=== PATIENT | female | born 1990 | race Caucasian/White ===

== ENCOUNTER 2020-08-09 20:36 | Emergency (ER) | payer MEDICAID ==
[~2020-08-09] VITALS: Ht 152.4 cm; Wt 87.1 kg
[2020-08-09 20:53] VITALS: BP 118/52
--- NOTE | 2020-08-09 20:57 | NUR ---
To ED bed 05
--- NOTE | 2020-08-09 21:08 | NUR ---
ERMD AT BEDSIDE EVALUATING PT
--- NOTE | 2020-08-09 21:40 | NUR ---
LAB AT BEDSIDE
--- NOTE | 2020-08-09 21:40 | NUR ---
ULTRASOUND AT BEDSIDE
[2020-08-09 21:51] LABS: BASOPHILS # (AUTO) 0.1 K/uL (0.00-0.22); BASOPHILS % (AUTO) 0.5 % (0.0-2.0); EOSINOPHILS # (AUTO) 0.1 K/uL (0-0.4); EOSINOPHILS % (AUTO) 0.8 % (0.0-4.0); HEMATOCRIT 36.5 % (36-48); HEMOGLOBIN 12.7 g/dL (12.0-16.0); LYMPHOCYTES # (AUTO) 3.5 K/uL (2.5-16.5); LYMPHOCYTES % (AUTO) 33.1 % (20.5-51.1); MEAN CORPUSCULAR HEMOGLOBIN 28 pg (27-31); MEAN CORPUSCULAR HGB CONC 35 g/dL (33-37); MEAN CORPUSCULAR VOLUME 81.6 fL (80-94); MONOCYTES # (AUTO) 0.7 K/uL (0.8-1.0); MONOCYTES % (AUTO) 6.6 % (1.7-9.3); NEUTROPHILS # (AUTO) 6.2 K/uL (1.8-7.7); PLATELET COUNT (AUTO) 243 K/uL (140-450); RED BLOOD CELL COUNT(AUTO) 4.48 MIL/uL (4.20-5.40); RED CELL DISTRIBUTION WIDTH 13.4 % (11.6-13.7); WHITE BLOOD COUNT (AUTO) 10.6 K/uL (4.8-10.8)
--- NOTE | 2020-08-09 21:59 | NUR ---
30 y/o female c/o intermittent vaginal bleeding x 2 days accompanied with pelvic pain. pt is 8-9 weeks . pt denies pain at this time. describes blood color as " bright red" denies burning/pain upon urination. denies fever, cough, sob. lung sounds clear. vss. G3 T2 L 2 pmhx: denies nka
[2020-08-09 22:12] LABS: ALBUMIN 3.4 g/dL (3.4-5.0); ANION GAP 14.2 (8-16); CARBON DIOXIDE 26.3 mmol/L (21-32); CREATININE 0.6 mg/dL (0.6-1.3); POTASSIUM 3.5 mmol/L (3.5-5.1); TOTAL BILIRUBIN 0.3 mg/dL (0.0-1.0)
[2020-08-09 22:23] LABS: PROTHROMBIN TIME 9.9 secs (10.8-13.4)
--- NOTE | 2020-08-09 22:49 | NUR ---
DR WILSON AT BEDSIDE SPEAKING WITH PT
[2020-08-09 22:53] VITALS: BP 118/52
--- NOTE | 2020-08-09 22:53 | NUR ---
Patient discharged with v/s stable. Written and verbal after care instructions given and explained. Patient verbalized understanding. Ambulatory with steady gait. ID Band Removed. All questions addressed prior to discharge. Advised to follow up with PMD.
== END 2020-08-09 22:53 | disposition home or self-care (01) ==
LOC: MED 20:36
DX: O26.851 Spotting complicating pregnancy, first trimester (principal); O26.891 Other specified pregnancy related conditions, first trimester; Z3A.08 8 weeks gestation of pregnancy
CPT/HCPCS: 36415; 76801; 80053; 81002; 81025; 84702; 85025; 85610; 86900; 86901; 99284; Q0092

== ENCOUNTER 2020-08-14 12:19 | Emergency (ER) | payer MEDICAID ==
[~2020-08-14] VITALS: Ht 152.4 cm; Wt 86.2 kg
[2020-08-14 12:27] VITALS: BP 114/104
--- NOTE | 2020-08-14 12:27 | NUR ---
PT AMB TO BED 12
[2020-08-14] MEDS ORDERED: ONDANSETRON 4 MG/2 ML VIAL IVP ONE (12:35)
[2020-08-14] MEDS ORDERED: NACL 0.9% 1,000 ML IV ONE (12:35)
[2020-08-14] MEDS ORDERED: MORPHINE SULFATE 4 MG/ML SYR IVP ONE (12:35)
--- NOTE | 2020-08-14 12:35 | NUR ---
PT C/O LOWER ABDOMINAL PAIN WITH CRAMPING SENSATION SINCE 08/09/2020 AND HEAVY VAGINAL BLEEDING WITH CLOTS X TODAY. PT WAS SEEN HERE ON 08/09/2020 AND DX WITH ABDOMINAL PAIN & VAGINAL BLEEDING DURING . PT FOLLOWED UP WITH HER OB DR ON Wednesday08/12/2020 AND WAS TOLD EVERYTHING WAS NORMAL PER PT. LMP: 06/06/2020, A0, APPROX 9 WKS OF
[2020-08-14 12:52] LABS: BASOPHILS # (AUTO) 0.1 K/uL (0.00-0.22); BASOPHILS % (AUTO) 0.5 % (0.0-2.0); EOSINOPHILS # (AUTO) 0.1 K/uL (0-0.4); EOSINOPHILS % (AUTO) 1.1 % (0.0-4.0); HEMATOCRIT 36.9 % (36-48); HEMOGLOBIN 12.8 g/dL (12.0-16.0); LYMPHOCYTES # (AUTO) 2.3 K/uL (2.5-16.5); LYMPHOCYTES % (AUTO) 21.7 % (20.5-51.1); MEAN CORPUSCULAR HEMOGLOBIN 28 pg (27-31); MEAN CORPUSCULAR HGB CONC 35 g/dL (33-37); MEAN CORPUSCULAR VOLUME 81.2 fL (80-94); MONOCYTES # (AUTO) 0.5 K/uL (0.8-1.0); MONOCYTES % (AUTO) 4.8 % (1.7-9.3); NEUTROPHILS # (AUTO) 7.6 K/uL (1.8-7.7); NEUTROPHILS % (AUTO) 71.9 % (42.2-75.2); PLATELET COUNT (AUTO) 252 K/uL (140-450); RED BLOOD CELL COUNT(AUTO) 4.54 MIL/uL (4.20-5.40); RED CELL DISTRIBUTION WIDTH 13.5 % (11.6-13.7); WHITE BLOOD COUNT (AUTO) 10.5 K/uL (4.8-10.8)
--- NOTE | 2020-08-14 13:36 | NUR ---
Ultrasound at bedside.
[2020-08-14 15:15] VITALS: BP 114/104
--- NOTE | 2020-08-14 15:16 | NUR ---
Patient discharged with v/s stable. Written and verbal after care instructions given and explained. Patient verbalized understanding. Ambulatory with steady gait. All questions addressed prior to discharge. Advised to follow up with PMD.
--- NOTE | 2020-08-17 04:32 | NUR ---
late entry---- s/w primary Nurse Jaime, as follows; end time NS [id number]
== END 2020-08-14 15:16 | disposition home or self-care (01) ==
LOC: MED 12:19
DX: O20.0 Threatened abortion (principal); R10.2 Pelvic and perineal pain; Z3A.08 8 weeks gestation of pregnancy
CPT/HCPCS: 36415; 76801; 84702; 85025; 96361; 96374; 96375; 99284; J2270; J2405; J7030

== ENCOUNTER 2020-08-17 02:40 | Emergency (ER) | payer MEDICAID ==
[~2020-08-17] VITALS: Ht 152.4 cm; Wt 87.1 kg
[2020-08-17 02:46] VITALS: BP 107/70
[2020-08-17] MEDS ORDERED: DOCUSATE SODIUM 100 MG GELCAP PO SCH (03:05)
[2020-08-17 03:25] VITALS: BP 107/70
== END 2020-08-17 03:25 | disposition home or self-care (01) ==
LOC: MED 02:40
DX: K59.00 Constipation, unspecified (principal)
CPT/HCPCS: 99282

== ENCOUNTER 2021-09-17 19:14 | Emergency (ER) | payer MEDICAID ==
[~2021-09-17] VITALS: Ht 152.4 cm; Wt 94.3 kg
[2021-09-17 19:20] VITALS: BP 144/86
--- NOTE | 2021-09-17 19:20 | NUR ---
TO BED AMBULATORY
--- NOTE | 2021-09-17 19:30 | NUR ---
31 Y/O F BIB SELF FOR VAGINAL SPOTTING X1WK. PATIENT PRESENTS TO ED WITH BILATERAL, (FRONT AND BACK) HIP PAIN, "MOSTLY IN HER LEFT SIDE." SHE STATES EARLIER TODAY SHE DISCHARGED A BLOOD CLOT WHICH SCARED HER TO GOING INTO THE ER. PT STATES SHE IS 5.5 WKS , IS SEEING AN OBGYN AND RECIEVING CARE. DENIES N/V/D; SKIN IS PINK/WARM/DRY; AAOX4 WITH EVEN AND STEADY GAIT; LUNGS CLEAR BL; HR EVEN AND REGULAR; PT DENIES ANY FEVER, CP, SOB, OR COUGH AT THIS TIME; PATIENT STATES PAIN OF 5/10 AT THIS TIME; VSS; PATIENT POSITIONED FOR COMFORT; HOB ELEVATED; BEDRAILS UP X2; BED DOWN. ER MD MADE AWARE OF PT STATUS. HX: MISCARRIAGE NKDA VITAMINS
[2021-09-17 21:03] LABS: BASOPHILS % (AUTO) 0.4 % (0.0-2.0); EOSINOPHILS # (AUTO) 0.1 K/uL (0-0.4); EOSINOPHILS % (AUTO) 0.5 % (0.0-4.0); HEMATOCRIT 34.7 % (36-48); HEMOGLOBIN 11.8 g/dL (12.0-16.0); LYMPHOCYTES % (AUTO) 25.5 % (20.5-51.1); MEAN CORPUSCULAR HEMOGLOBIN 26 pg (27-31); MEAN CORPUSCULAR HGB CONC 34 g/dL (33-37); MEAN CORPUSCULAR VOLUME 76.5 fL (80-94); MONOCYTES # (AUTO) 0.6 K/uL (0.8-1.0); NEUTROPHILS % (AUTO) 68.6 % (42.2-75.2); PLATELET COUNT (AUTO) 292 K/uL (140-450); RED BLOOD CELL COUNT(AUTO) 4.54 MIL/uL (4.20-5.40); RED CELL DISTRIBUTION WIDTH 14.6 % (11.6-13.7); WHITE BLOOD COUNT (AUTO) 11.6 K/uL (4.8-10.8)
--- NOTE | 2021-09-17 21:39 | NUR ---
Dr. Rizo examining patient.
[2021-09-17] MEDS ORDERED: ACETAMINOPHEN 325 MG TAB PO ONE (21:55)
[2021-09-17 22:09] LABS: ALBUMIN 3.5 g/dL (3.4-5.0); ANION GAP 10.8 (8-16); CARBON DIOXIDE 25.5 mmol/L (21-32); CREATININE 0.5 mg/dL (0.6-1.3); POTASSIUM 3.3 mmol/L (3.5-5.1); TOTAL BILIRUBIN 0.3 mg/dL (0.0-1.0)
--- NOTE | 2021-09-17 22:10 | NUR ---
ER AT BEDSIDE
--- NOTE | 2021-09-17 22:17 | NUR ---
URINE SPECIMEN WALKED TO LAB
--- NOTE | 2021-09-17 22:18 | NUR ---
ER AT BEDSIDE
[2021-09-17] MEDS ORDERED: POTASSIUM CHLORIDE 10 MEQ TABER PO ONE (22:25)
[2021-09-17 22:32] LABS: APPEARANCE,URINE CLEAR (CLEAR); BILIRUBIN,URINE NEGATIVE (NEGATIVE); BLOOD, URINE 3+ (NEGATIVE); COLOR,URINE YELLOW (YELLOW); LEUKOCYTE ESTERASE ,URINE NEGATIVE (NEGATIVE); NITRITE, URINE NEGATIVE (NEGATIVE); UGLUCOSE NEGATIVE (NEGATIVE)
--- NOTE | 2021-09-17 22:45 | NUR ---
LABS AT BEDSIDE
[2021-09-17 22:46] LABS: RBC,URINE 0-5 /HPF (0-5); WBC,URINE 0-5 /HPF (0-5)
--- NOTE | 2021-09-17 23:31 | NUR ---
ER MD AT BEDSIDE PERFORMING EXAMINATION
[2021-09-18 00:12] VITALS: BP 123/75
--- NOTE | 2021-09-18 00:12 | NUR ---
Patient discharged with v/s stable. Written and verbal after care instructions given and explained. Patient verbalized understanding. Ambulatory with steady gait. All questions addressed prior to discharge. Advised to follow up with PMD. A/OX4, GCS:15, VSS, UNLABORED BREATHING, STEADY GAIT, AND CALM DEMEANOR.
== END 2021-09-18 00:12 | disposition home or self-care (01) ==
LOC: MED 19:14
DX: O46.91 Antepartum hemorrhage, unspecified, first trimester (principal); O20.0 Threatened abortion; Z3A.01 Less than 8 weeks gestation of pregnancy
CPT/HCPCS: 36415; 76817; 80053; 81001; 83605; 84702; 85025; 86886; 86900; 86901; 87086; 99284; Q0092

== ENCOUNTER 2021-09-22 10:40 | Emergency (ER) | payer MEDICAID ==
[~2021-09-22] VITALS: Ht 152.4 cm; Wt 93.4 kg
[2021-09-22 11:32] VITALS: BP 120/49
[2021-09-22 12:24] LABS: BASOPHILS % (AUTO) 0.4 % (0.0-2.0); EOSINOPHILS # (AUTO) 0.1 K/uL (0-0.4); EOSINOPHILS % (AUTO) 0.8 % (0.0-4.0); HEMATOCRIT 36.5 % (36-48); HEMOGLOBIN 12.5 g/dL (12.0-16.0); LYMPHOCYTES % (AUTO) 18.3 % (20.5-51.1); MEAN CORPUSCULAR HEMOGLOBIN 26 pg (27-31); MEAN CORPUSCULAR HGB CONC 34 g/dL (33-37); MEAN CORPUSCULAR VOLUME 77.2 fL (80-94); MONOCYTES # (AUTO) 0.5 K/uL (0.8-1.0); MONOCYTES % (AUTO) 4.9 % (1.7-9.3); NEUTROPHILS # (AUTO) 8.1 K/uL (1.8-7.7); NEUTROPHILS % (AUTO) 75.6 % (42.2-75.2); PLATELET COUNT (AUTO) 298 K/uL (140-450); RED BLOOD CELL COUNT(AUTO) 4.73 MIL/uL (4.20-5.40); RED CELL DISTRIBUTION WIDTH 14.5 % (11.6-13.7); WHITE BLOOD COUNT (AUTO) 10.7 K/uL (4.8-10.8)
[2021-09-22 12:37] LABS: ANION GAP 15.2 (8-16); CARBON DIOXIDE 23.8 mmol/L (21-32); CREATININE 0.5 mg/dL (0.6-1.3)
[2021-09-22] MEDS: MORPHINE SULFATE 4 MG/ML SYR IVP ONE (13:33)
[2021-09-22] MEDS: METOCLOPRAMIDE 10 MG/2 ML INJ VIAL IVP ONE (13:33)
[2021-09-22 15:16] VITALS: BP 120/49
== END 2021-09-22 15:16 | disposition home or self-care (01) ==
LOC: MED 10:40
DX: O20.0 Threatened abortion (principal)
CPT/HCPCS: 36415; 76801; 80048; 81002; 81025; 84702; 85025; 86886; 86900; 86901; 96374; 96375; 99284; J2270; J2765; Q0092

== ENCOUNTER 2022-12-07 12:26 | Emergency (ER) | payer MEDICAID ==
[~2022-12-07] VITALS: Ht 152.4 cm; Wt 97.5 kg
[2022-12-07 13:05] VITALS: BP 119/75
[2022-12-07] MEDS ORDERED: KETOROLAC 30 MG/ML VIAL IM ONE (13:50)
[2022-12-07] MEDS ORDERED: CAPS1ADH5 TP (13:53)
[2022-12-07] MEDS ORDERED: NAPR-1704 PO (13:53)
--- NOTE | 2022-12-07 14:16 | NUR ---
Patient discharged with v/s stable. Written and verbal after care instructions ABOUT MUSCLE STRAIN AND SCIATICA REHAB given and explained. Patient alert, oriented and verbalized understanding of instructions. Ambulatory with steady gait. All questions addressed prior to discharge. ID band removed. Patient advised to follow up with PMD. Rx of SALONPAS GEL-PATCH HOT AND NAPROXEN given. Patient educated on indication of medication including possible reaction and side effects. Opportunity to ask questions provided and answered.
== END 2022-12-07 14:16 | disposition home or self-care (01) ==
LOC: MED 12:26
DX: S76.812A Strain of other specified muscles, fascia and tendons at thigh level, left thigh, initial encounter (principal); X58.XXXA Exposure to other specified factors, initial encounter; Y93.89 Activity, other specified; Y92.89 Other specified places as the place of occurrence of the external cause; Y99.8 Other external cause status
CPT/HCPCS: 81025; 96372; 99283; J1885

== ENCOUNTER 2024-06-05 17:56 | Emergency (ER) | payer MEDICAID, OTHER ==
[~2024-06-05] VITALS: Ht 152.4 cm; Wt 88.5 kg
[~2024-06-05 17:56] MED LIST: CAPS1ADH5 TP; NAPR-1704 PO
[2024-06-05 18:17] VITALS: BP 148/95; PULSE 79; RESP 20; TEMP 97.5; O2SAT 100
--- NOTE | 2024-06-05 18:41 | NUR ---
34 Y/O F WITH NO PMH PT STATED SHE FELT A SHARP PAIN IN BACK TODAY AND HAS WORSENED TO SEVERE LOW BACK PAIN RADIATING TO LEGS 07/13 PMH: DENIES ALLERGIES NKA
[2024-06-05] MEDS: HYDROcodone/APAP 5/325 MG 1 TAB TAB PO ONE (18:56)
[2024-06-05] MEDS: KETOROLAC 30 MG/ML VIAL IM ONE (18:56)
--- NOTE | 2024-06-05 19:14 | NUR ---
REPORT GIVEN TO MELVIN BROOKE; MELVIN HAS CLEAR UNDERSTANDING OF CARE.
[2024-06-05 19:33] VITALS: O2SAT 100
--- NOTE | 2024-06-05 19:40 | NUR ---
PT C/O R FLANK PAIN /. STATES SHE WAS GETTING OUT OF BED AND FELT A SHARP PAIN IN HER BACK. STATES WHEN SHE TRYS TO GET UP OR MOVE THE PAIN BECOMES 10/10.
[2024-06-05] MEDS ORDERED: METH4TAB1 PO (19:49)
[2024-06-05] MEDS ORDERED: ACET-8905 PO (19:49)
[2024-06-05] MEDS ORDERED: LID5T TP (19:49)
[2024-06-05] MEDS ORDERED: IBUP-2213 PO (19:49)
[2024-06-05 19:57] VITALS: BP 148/95; PULSE 79; RESP 20; TEMP 97.5; O2SAT 100
== END 2024-06-05 19:57 | disposition home or self-care (01) ==
LOC: MED 17:56
DX: S39.012A Strain of muscle, fascia and tendon of lower back, initial encounter (principal); Z79.899 Other long term (current) drug therapy; X58.XXXA Exposure to other specified factors, initial encounter; Y93.89 Activity, other specified; Y92.89 Other specified places as the place of occurrence of the external cause; Y99.8 Other external cause status
CPT/HCPCS: 81025; 96372; 99283; J1885